=== PATIENT | female | born 1985 | race African-American/Black ===

== ENCOUNTER → 2017-01-02 | Outpatient (CLI) | payer OTHER ==
[~2017-01-02] MED LIST: ACETAMINOPHEN500 M5 PO; ACETAZOLAMIDE125 MG PO; ADVIL200 M2 PO
--- NOTE | ~2017-01-02 | XA198 ---
[facility] A Service of [facility] & [facility] RADIOLOGY TEXT RESULTS PATIENT: DERRICK BAR LOCATION: CIVR : 87 UNIT #: [id number] AGE: [address]: Allen Fontenot II, MD SEX: F ORDER DR: [id number] [facility] [address] [place], [place] [address] [id number] O MR#: [id number] Acc #: [id number] NAME: DERRICK BAR : 1985 SEX: F STUDY DATE/TIME: 01/02/2017 9:19 UNIT: [facility] ROOM: STUDY DESCRIPTION: XA Spinal Puncture Attending Physician: Allen Fontenot II., M.D. Referring Physician: Allen Fontenot II., M.D. Ordering Physician: Allen Fontenot II., M.D. Primary Care Physician: Marcel Nuñez M.D. MEDICAL IMAGING REPORT This report is preliminary unless electronic signature is present EXAM Lumbar puncture under fluoroscopy HISTORY Headache, dizziness and visual changes for 6 months. FINDINGS Procedure and attendant risks and options were discussed with the patient. The patient was placed in the prone position. Fluoroscopy was utilized to localize the outlet foramina. A 20-gauge spinal needle was initially placed in the lumbar subarachnoid space at the L3 level. Opening pressure measured at 32 mmHg. Approximately 20 mL of clear CSF was withdrawn. A closing pressure was measured at 17 mmHg. Total fluoroscopy time for the procedure was 1.4 minutes. A single spot radiograph was obtained. Total exposure 86 mGy. Air kerma standard. IMPRESSION Successful LP under fluoro with an opening pressure of 32 and a closing pressure of 17. Dictated by... Lorne Acevedo M.D. THIS IS AN ELECTRONICALLY VERIFIED REPORT Lorne Acevedo M.D. at 01/02/2017 4:40 PM [place] TD: 01/02/2017 11:29 JOB #: [id number] MEDICAL IMAGING REPORT Page 1 of 1 COPY
[2017-01-02 08:35] LABS: HEMATOCRIT 31.2 % (35.0-45.0); HEMOGLOBIN 9.8 gm/dL (12.0-16.0); MEAN CELL VOLUME 74.1 FL (83-96); MEAN CORPUSCULAR HEMOGLOBIN 23.3 PG (28-34); MEAN CORPUSCULAR HGB CONC 31.4 g/dL (30-36); MEAN PLATELET VOLUME 7.3 FL (6.5-11.5); RED BLOOD COUNT 4.21 X10e (3.90-5.30); RED CELL DISTRIBUTION WIDTH 16.8 % (11.0-15.5); WHITE BLOOD COUNT 7.7 X10e3 (4.0-10.5)
[2017-01-02 08:47] LABS: INR 0.9; PARTIAL THROMBOPLASTIN TIME 27.3 SECONDS (23.5-31.3); PROTHROMBIN TIME (PATIENT) 9.6 SECONDS (9.6-11.5)
== END | disposition home or self-care (01) ==
LOC: CIVR 08:13
PROVIDERS: Psychiatry & Neurology Neurology
PROC: 009U3ZZ Drainage of Spinal Canal, Percutaneous Approach (ICD-10-PCS; principal; 2017-01-02)
DX: G93.2 Benign intracranial hypertension (principal)
CPT/HCPCS: 36415; 77003; 85027; 85610; 85730; C1713

== ENCOUNTER → 2017-01-07 | Day surgery (SDC) | payer OTHER ==
--- NOTE | ~2017-01-07 | OR ---
Unit #: [id number] #: [id number] Patient: DERRICK BAR [id number] [address] [address] [id number] O MR#: [id number] NAME: DERRICK BAR ROOM: Date of Procedure: 01/07/2017 Admission Date: 01/07/2017 Surgeon: Lorenzo Galindo M.D. : 1985 Attending Physician: Lorenzo Galindo M.D. Primary Care Physician: Marcel Nuñez M.D. SURGERY CENTER OPERATIVE NOTE PROCEDURE PERFORMED Lumbar epidural blood patch under x-ray guided needle placement with provider administered conscious sedation. PREOPERATIVE DIAGNOSIS Postdural puncture headache. INDICATIONS FOR PROCEDURE The patient presents today with a one-week history of dural puncture headaches like symptoms with postural headache, relieved by lying down. She is status post a diagnostic lumbar puncture approximately one week ago in the neurologist's office. The diagnostic puncture was not done for a suspected infective cause. The patient further denies any signs or symptoms compatible with infective disease. She further denies the presence of blood borne illness. After discussing risks and benefits of proceeding today with a lumbar epidural blood patch, the patient agreed this would be the appropriate course of action. DESCRIPTION OF PROCEDURE She was then taken to the operating room, where she was prepped and draped in a sterile manner. Standard monitors were applied. She was sedated with 2 mg of IV Versed and lumbar epidural space accessed at L4-L5 level using loss of resistance technique and x-ray guidance. Needle placement was confirmed with injection of 2 mL of Omnipaque. Total x-ray time for this needle placement was 1 second. Following this needle placement, the patient had 20 mL of autologous blood withdrawn in a sterile manner and injected in 5 mL increments. The patient did at the conclusion of the injection experience brief syncopal episode, most likely related to a vasovagal response to the pressure generated by the injection as she described it moving from her back to her hip to between her shoulder blades. She recovered immediately and vital signs were stable throughout and she was placed in the lying position and treated with oxygen. Following this, she was taken to the recovery room where we will assess the effectiveness of our epidural blood patch. She has been told she can return as early as Thursday morning if she needs a repeat. Dictated by... Lorenzo Galindo M.D. JRG/michael Unit #: [id number] #: [id number] Patient: DERRICK BAR TD: 01/07/2017 13:40 JOB #: [id number] CC: Allen Fontenot II, M.D. SURGERY CENTER OPERATIVE NOTE Page 1 of 1 X Manuel Galindo MD X PROCEDURE OPERATIVE NOTE
== END | disposition home or self-care (01) ==
LOC: CCSC 09:00
DX: G97.1 Other reaction to spinal and lumbar puncture (principal)
CPT/HCPCS: J2250